=== PATIENT | male | born 1950 | race Caucasian/White ===

== ENCOUNTER → 2022-08-18 13:37 | Outpatient (CLI) | payer OTHER, SELFPAY ==
--- NOTE | 2022-08-18 | DI.ECHO.S_ITS ---
[place] [facility]---------+ [facility] +---------+ : : [address] : [address] [place] : : : : [id number] : : : : Phone: [phone]---------+ Echocardiogram Report + + :Name: SAV EVANS Study Date: 08/18/2022 Height: 68 in : :[facility] ReadingLocation: Weight: 175 lb : : Gender: Male BSA: 1.9 m2 : :: 1950 Age: 72 yrs BP: 133/89 mmHg: :Reason For Study: HISTORY OF CARDIAC ARREST : :Ordering Physician: ANILA, : :YOJANA Performed By: Yolanda Bess : :Referring: YOJANA DAVALOS : + + Interpretation Summary 1) Normal left ventricular thickness and size with low normal systolic function (EF 50-55%). 2) Normal right ventricular size and function. 3) No significant valvular abnormalities. 4) No prior Echo available for comparison. Procedure: A two-dimensional transthoracic echocardiogram with color flow and Doppler was performed. The study quality was technically adequate. There is no prior echocardiogram noted for this patient. The patient was in sinus rhythm with heart rates between 74-88 bpm during the exam. Left Ventricle: The left ventricle is normal in size and wall thickness. The ejection fraction is estimated to be 50-55%. There are no focal wall motion abnormalities. Diastolic parameters suggest a relaxation abnormality of the left ventricle, consistent with probable normal filling pressures. Right Ventricle: The right ventricle is normal in size and function. Atria: The left atrium is moderately dilated. Right atrial size is normal. There is no Doppler evidence for an interatrial shunt. Mitral Valve: The mitral valve is normal in structure and function. There is mild mitral regurgitation. Aortic Valve: The aortic valve is trileaflet. The aortic valve opens well. There is no aortic valve stenosis. No aortic regurgitation is present. Tricuspid Valve: The tricuspid valve is normal in structure and function. There is mild tricuspid regurgitation. The right ventricular systolic pressure is estimated to be at least 27 mmHg based on an estimated right atrial pressure of 3 mm Hg. Pulmonic Valve: The pulmonic valve leaflets are thin and pliable; valve motion is normal. There is trace pulmonic regurgitation. Great Vessels: The aortic root is normal size. The dimensions of the ascending aorta are normal. The IVC is of normal diameter and collapses greater than 50% with a sniff. This suggests a low right atrial pressure of 3 mm Hg. Pericardium/ Pleura There is no pericardial effusion. There is no pleural effusion. MMode/2D Measurements & Calculations LVIDd: 5.1 cm LVOT diam: 2.5 cm LVIDs: 3.8 cm Ao root diam: 3.7 cm FS: 26.2 % asc Aorta Diam: 3.4 cm EPSS: 1.1 cm Ao Arch Diam (Prox Trans): 2.9 cm IVSd: 0.83 cm LVPWd: 0.86 cm LV wilson. diameter/BSA (cm/m^2): 2.7 LV sys. diameter/BSA (cm/m^2): 2.0 LA A2 area: 23.0 cm2 RA long axis: 6.5 cm LA A4 area: 21.8 cm2 RA area: 20.2 cm2 LA length (vol): 6.0 cm RA vol: 53.8 ml LA vol: 70.9 ml RA : 27.8 ml/m2 LA vol index: 36.7 ml/m2 IVC diam: 1.6 cm RVD1 (basal): 3.3 cm RVD2 (mid): 2.9 cm TAPSE: 2.0 cm Doppler Measurements & Calculations Ao V2 max: 75.8 cm/sec LVOT Max Neil: 70.1 cm/sec Ao V2 mean: 57.4 cm/sec LV V1 max P.0 mmHg Ao max P.3 mmHg LV V1 VTI: 13.9 cm Ao mean P.4 mmHg WILLIE(I,D): 4.3 cm2 Ao V2 VTI: 16.2 cm WILLIE(V,D): 4.7 cm2 sev ratio: 0.86 WILLIE indexed to BSA (cm^2/m^2): 2.2 MV E max neil: 77.1 cm/sec TR max neil: 245.8 cm/sec MV A max neil: 21.6 cm/sec TR max P.2 mmHg MV E/A: 3.6 PA V2 max: 52.8 cm/sec Med Peak E' Neil: 8.3 cm/sec PA V2 mean: 40.4 cm/sec E/E' med: 9.3 PA mean P.70 mmHg Lat Peak E' Neil: 11.8 cm/sec E/E' lat: 6.6 E/e' average: 7.9 MV dec time: 0.23 sec SVLVOT): 70.2 ml Reading Physician:01:20 PM
== END ==
PROVIDERS: Referring Provider Internal Medicine Cardiovascular Disease; Visit Provider Internal Medicine Cardiovascular Disease
DX: I42.8 Other cardiomyopathies (principal); Z86.74 Personal history of sudden cardiac arrest; I08.1 Rheumatic disorders of both mitral and tricuspid valves
CPT/HCPCS: 93306

== ENCOUNTER → 2022-08-27 10:50 | Outpatient (CLI) | payer OTHER, SELFPAY ==
[2022-08-27 11:48] LABS: Add Manual Diff / Slide Review NO; Basophils Absolute Auto 100 /uL (0-100); Eosinophils Absolute Auto 200 /uL (0-450); Eosinophils Percent Auto 2.7 % (2-4); Hematocrit 37.1 % (41-53); Hemoglobin 12.7 g/dL (13.5-17.5); Lymphocytes Absolute Auto 2000 /uL (1100-4500); Lymphocytes Percent Auto 33.4 % (25-40); Mean Corpuscular HGB Conc 34.4 % (30-36); Mean Corpuscular Hemoglobin 31.6 PG (26-34); Mean Corpuscular Volume 91.9 fL (80-100); Monocytes Absolute Auto 700 /uL (0-900); Monocytes Percent Auto 11.1 % (3-14); Neutrophils Absolute Auto 3100 /uL (1500-7000); Neutrophils Percent Auto 51.8 % (50-75); Platelet Count 190 X10^3/uL (150-400); Red Blood Cell Count 4.04 X10^6/uL (4.5-5.9); Red Cell Distribution Width 13.6 % (11.6-14.8); White Blood Cell Count 5.9 X10^3/uL (4.5-11.0)
[2022-08-27 12:08] LABS: BUN Creatinine Ratio 20.8 (6-22); Blood Urea Nitrogen 20 mg/dL (9-20); Calcium 9.2 mg/dL (8.4-10.2); Carbon Dioxide 26 mmol/L (22-32); Chloride 103 mmol/L (98-107); Cholesterol 180 mg/dL (140-199); Estimated Glomerular Filt Rate > 60 mL/min (>60); Glucose 87 mg/dL (80-110); HDL Cholesterol 84 mg/dL (40-60); HEMOLYSIS < 15 (0-50); LDL Cholesterol Calculated 74 mg/dL (<100); Potassium 4.7 mmol/L (3.4-5.1); Sodium 135 mmol/L (137-145); Triglycerides 110 mg/dL (35-150)
== END ==
PROVIDERS: PCP Student in an Organized Health Care Education/Training Program; Referring Provider Internal Medicine Cardiovascular Disease; Visit Provider Internal Medicine Cardiovascular Disease
DX: E78.5 Hyperlipidemia, unspecified (principal); I10 Essential (primary) hypertension
CPT/HCPCS: 36415; 80048; 80061; 85025

== ENCOUNTER → 2024-11-19 11:09 | Outpatient (CLI) | payer MEDICARE, SELFPAY ==
[2024-11-19 12:05] LABS: Hematocrit 41.1 % (41-53); Hemoglobin 13.8 g/dL (13.5-17.5); Mean Corpuscular HGB Conc 33.5 % (30-36); Mean Corpuscular Hemoglobin 31.6 PG (26-34); Mean Corpuscular Volume 94.5 fL (80-100); Platelet Count 218 X10^3/uL (150-400)
[2024-11-19 12:29] LABS: Blood Urea Nitrogen 13 mg/dL (9-20); Calcium 9.4 mg/dL (8.4-10.2); Carbon Dioxide 24 mmol/L (22-32); Chloride 103 mmol/L (98-107); Cholesterol 179 mg/dL (140-199); Estimated Glomerular Filt Rate > 60 mL/min (>60); Glucose 96 mg/dL (70-99); HDL Cholesterol 75 mg/dL (40-60); HEMOLYSIS 16 (0-50); Potassium 4.4 mmol/L (3.4-5.1); Sodium 137 mmol/L (137-145); Triglycerides 130 mg/dL (35-150)
== END ==
PROVIDERS: PCP Student in an Organized Health Care Education/Training Program; Referring Provider Student in an Organized Health Care Education/Training Program; Visit Provider Internal Medicine Cardiovascular Disease
DX: I25.10 Atherosclerotic heart disease of native coronary artery without angina pectoris (principal); I42.8 Other cardiomyopathies
CPT/HCPCS: 36415; 80048; 80061; 85027